=== PATIENT | female | born 1940 | race Caucasian/White ===

== ENCOUNTER 2016-10-25 15:35 | Inpatient (IN) ==
[2016-10-25] MEDS ORDERED: NS 1,000 ML ONE (16:27)
[2016-10-25] MEDS ORDERED: NS 1,000 ML IV ONE (16:30)
[2016-10-25] MEDS ORDERED: TYLENOL ONE (16:49)
[2016-10-25 16:50] LABS: ALLEN TEST YES; BE -9.6 mmoll (-3.0-3.0); BLOOD TYPE ARTERIAL; DRAW SITE R RADIAL; METHB 1.2 % (0.0-1.5); PCO2(98.6) 26 mmHg (35-45); PO2(98.6) 92 mmHg (60-100); SAMPLE BLOOD; THB 8.8 g/dL (11.5-17.4); pH(98.6) 7.36 (7.35-7.45)
[2016-10-25 16:51] LABS: MODALITY CANNULA
[2016-10-25 16:59] LABS: BASO% 3.4 % (0.0-0.8); EOS# 0.01 X1000 (0.0-0.7); EOS% 0.5 % (0.0-10.0); HEMATOCRIT 29.8 % (37.0-47.0); HEMOGLOBIN 9.6 g/dL (12.0-16.0); LYMPH# 0.64 X1000 (1.2-3.4); LYMPH% 31.2 % (20.5-51.1); MANUAL DIFF NEEDED? YES; MCHC 32.2 g/dL (33-37); MCV 93.1 FL (81-99); MONO# 0.59 X1000 (0.11-0.59); MONO% 28.8 % (1.7-9.3); MPV 10.8 FL (7.4-10.4); NEUT% 36.1 % (42.2-75.2); PLT 87 X1000 (130-400)
[2016-10-25 17:04] LABS: INR 1.13; PTT 37.8 Seconds (22.0-36.0)
[2016-10-25 17:11] LABS: ALBUMIN 3.8 g/dL (3.5-5.0); MAGNESIUM 1.5 mg/dL (1.5-2.7); POTASSIUM 4.5 mmol/L (3.5-5.1); TOTAL BILIRUBIN 0.62 mg/dL (0.20-1.00)
[2016-10-25] MEDS ORDERED: LACTULOSE PO ONE (17:23)
[2016-10-25 17:26] LABS: BANDS 17 % (0-1); LYMPHS 32 % (21-51); MONO 30 % (1-9); NRBC 1 % (0-0)
--- NOTE | 2016-10-25 17:28 | Diag Imaging Result Doc PS360 ---
EXAM: HEAD W/O CONTRAST TECHNIQUE: INDICATION: ams COMPARISON: MRI dated 09/12/2016. No prior CT brain is available for comparison. FINDINGS: There is no definite acute infarct given the limited sensitivity of CT versus MRI. There is no discrete intracranial mass, mass effect, or intracranial hemorrhage. There is a right frontal craniotomy defect. Surrounding soft tissues and bony structures are grossly unremarkable, otherwise. IMPRESSION: No evidence of acute intracranial pathology. Electronically signed by Gilson Torres 10/25/2016 5:26 PM
--- NOTE | 2016-10-25 17:32 | Diag Imaging Result Doc PS360 ---
EXAM: CHEST-PORTABLE INDICATION: sepsis eval lung ca recent port placed TECHNIQUE: One view COMPARISON: 10/09/2016 FINDINGS: There has been interval placement of right chest port. The tip projects over the region of the lower SVC just superior to the atriocaval junction in the expected position. There is vague nodularity seen throughout both lungs consistent with known metastatic disease. There is increased opacity at the right lung base suggesting a possible developing infiltrate. There is no evidence of pneumothorax. Cardiac silhouette is stable. IMPRESSION: 1.Interval placement of right chest port as described. No evidence of pneumothorax. 2.Fine nodularity throughout both lungs similar to previous studies consistent with known metastatic disease. 3.Increased opacity at the right lung base suggesting potential developing infiltrate. Follow-up chest radiograph is recommended. Electronically signed by Gilson Torres 10/25/2016 5:30 PM
[2016-10-25 17:43] LABS: URINE CULTURE NEEDED? NO; URINE SOURCE CATH
[2016-10-25] MEDS ORDERED: ZOSYN 3.375 GM/NS 3.375 GM/50 ML IVPB IV ONE (17:47)
[2016-10-25 17:54] LABS: BILIRUBIN URINE NEGATIVE (NEGATIVE); BLOOD URINE NEGATIVE (NEGATIVE); COLOR YELLOW; GLUCOSE URINE NEGATIVE (NEGATIVE); LEUKOCYTES URINE NEGATIVE (NEGATIVE); NITRITE URINE NEGATIVE (NEGATIVE); PH URINE 5.5; PROTEIN URINE 50 mg/dL (NEGATIVE); SP GRAVITY URINE 1.014; TURBIDITY URINE HAZY (CLEAR); URINE MICRO REVIEW NEEDED? YES; UROBILINOGEN URINE NORMAL (NORMAL)
[2016-10-25 17:58] LABS: UR EPITHELIAL CELLS <10 /HPF (<10); URINE BACTERIA NEGATIVE /HPF; URINE WBC <10 /HPF (<10)
[2016-10-25 18:00] LABS: URINE CASTS GRANULAR PRESENT
[2016-10-25] MEDS ORDERED: CLINDAMYCIN 600 MG/NS 600 MG/50 ML IVPB IV ONE (18:01)
--- NOTE | 2016-10-25 18:03 | PROVIDER DOCUMENTATION ---
This chart was entered by Gabi Rosas Scribe, acting as scribe for Rohit Mcdowell MD. HPI-Fever - General Chief Complaint: Possible Sepsis-D Stated Complaint: SOB/NOT RESPONDING Time Seen by Provider: 10/25/16 16:03 Source: patient Home Medications: Home Medication List Medication Instructions Recorded Confirmed Last Taken Type Bisoprolol [Zebeta] 10 mg PO DAILY 09/29/16 09/29/16 09/29/16 05:30 History Cholecalciferol (Vit D3) [Vitamin 1,000 cap PO DAILY 09/29/16 09/29/16 09/28/16 10:00 History D] Furosemide 20 cap PO DAILY 09/29/16 09/29/16 09/28/16 10:00 History Gabapentin [Neurontin] 100 mg PO 4XDAY 09/29/16 09/29/16 09/28/16 21:00 History Gemfibrozil 600 mg PO BID 09/29/16 09/29/16 09/28/16 17:00 History Lamotrigine [Lamictal Xr] 200 mg PO DAILY 09/29/16 09/29/16 09/28/16 10:00 History Loperamide [Imodium] 2 mg PO BID 09/29/16 09/29/16 09/08/16 17:00 History Losartan [Cozaar] 50 mg PO DAILY 09/29/16 09/29/16 09/28/16 10:00 History Melatonin/Pyridoxine [Melatonin 3 3 mg PO HS 09/29/16 09/29/16 09/28/16 21:00 History mg Tablet] Omeprazole 40 mg PO DAILY 09/29/16 09/29/16 09/28/16 10:00 History PRAVAstatin [Pravachol] 40 mg PO DAILY 09/29/16 09/29/16 09/28/16 10:00 History Perphenazine 2 mg PO HS 09/29/16 09/29/16 09/28/16 21:00 History Trazodone [Desyrel] 50 mg PO HS 09/29/16 09/29/16 09/28/16 09:00 History - History of Present Illness-Fever Nature of Presenting Problem: Pt is a 75 year old female who was recently diagnosed with lung and spine cancer. Pt daughters report that she got a port put in yesterday and seemed fine. Pt later on in the night started running a 101.4 fever so the family called Dr. Shrestha. PT was told to take a percocet and it brought the fever down. Pt this morning was lethargic. Fever Severity/Quality: reports: greater than 100.5 F Onset/Duration: reports: 24 hours ago Timing: reports: still present Context: reports: decreased mental status, cancer-chemotherapy Fever Therapy TSA SCREENER: Initiated prescription medications Cognitive Baseline: alert but disoriented Associated Symptoms: reports: fever/chills, weakness Similar Symptoms Previously?: Yes Recently seen or treated by another doctor?: No - Glascow Coma Score Best Eye Response ([place]): (4) open spontaneously Best Verbal Response ([place]): (5) oriented Best Motor Response ([place]): (6) obeys commands [place] Total: 15 Review of Systems - Adult - REVIEW OF SYSTEMS - ADULT ROS:: unobtainable per condition Constitutional: reports: chills, fever Past History - Adult - PAST MEDICAL HISTORY-ADULT Review of Records: reports: Old Records Reviewed, Nursing Assessment Review Major Childhood Illnesses: reports: denies history Cardiovascular: reports: HTN Respiratory: reports: asthma, cancer (lung) Gastrointestinal: reports: denies history Obstetrical/Gynecological: reports: denies history Genitourinary: reports: denies history Musculoskeletal: reports: denies history Neurological: reports: denies history Endocrine/Immune: reports: denies history Other Conditions: reports: denies history - IMMUNIZATION STATUS Childhood Immunizations: See Nurse Assessment Flu Vaccine: See Nurse Assessment - FAMILY HISTORY Family History: reviewed, not pertinent Physical Exam-General - PHYSICAL EXAM-ADULT Initial Vital Signs Reviewed: Yes - CONSTITUTIONAL General Appearance: alert, mild distress, obese - EYES Eyes: PERRL/EOMI - HEAD, EARS, NOSE, MOUTH & THROAT HENMT: normocephalic/atraumatic, moist mucous membranes - NECK Neck: normal inspection - RESPIRATORY Respiratory: chest non-tender, lungs clear, normal breath sounds - CARDIOVASCULAR Cardiovascular: regular rate, rhythm - GASTROINTESTINAL (ABDOMEN) Abdominal Exam: soft, other (colonoscopy; feeding tube) - MUSCULOSKELETAL Back Exam: normal inspection, no vertebral tenderness Extremity: normal range of motion, non-tender, normal inspection - SKIN Integumentary: normal color, normal turgor, warm/dry - NEUROLOGIC Neurologic: grossly normal, no motor/sensory deficits - PSYCHIATRIC Psych/Mental Status: normal mood/affect, normal thought content, normal thought process, oriented x 3 Progress - PLAN OF CARE/RESULTS Progress/Plan/Lab Results: Vital Signs - 8 hr 10/25/16 16:09 10/25/16 17:42 Temperature 103.0 F H Pulse Rate 87 78 Respiratory Rate 27 H 23 Blood Pressure 161/57 161/57 O2 Sat by Pulse Oximetry 93 L 97 Laboratory Results - last 24 hr 10/25/16 10/25/16 10/25/16 16:05 16:05 16:05 WBC 2.05 L RBC 3.20 L Hgb 9.6 L Hct 29.8 L MCV 93.1 MCH 30.0 MCHC 32.2 L RDW Std Deviation 12.7 Plt Count 87 L MPV 10.8 H Immature Gran % (Auto) 0.0 Neut % (Auto) 36.1 L Lymph % (Auto) 31.2 [place] % (Auto) 28.8 H Eos % (Auto) 0.5 Baso % (Auto) 3.4 H Immature Gran # (Auto) 0.00 Neut # (Auto) 0.74 L Lymph # (Auto) 0.64 L [place] # (Auto) 0.59 Eos # (Auto) 0.01 Baso # (Auto) 0.07 Segmented Neutrophils 16 L Band Neutrophils 17 H Lymphocytes 32 Monocytes 30 H Nucleated RBCs 1 H Atypical Lymphocytes 5.0 PT INR PTT (Actin FS) Specimen Type Sample Site pH pCO2 pO2 HCO3 Base Excess Oxyhemoglobin ABG O2 Sat (Calculated) ABG O2 Saturation ABG Carboxyhemoglobin ABG Methemoglobin Joseluis Test Total Hemoglobin Lactate Liter Flow Blood Gas Modality Sodium 132 L Potassium 4.5 Chloride 103 Carbon Dioxide 16 L Anion Gap 13 BUN 25 H Creatinine 1.2 H Estimated GFR/1.73 m2 44 BUN/Creatinine Ratio 21 Glucose 172 H Calculated Osmolality 273 Calcium 9.0 Magnesium 1.5 Total Bilirubin 0.62 AST 13 ALT 11 Alkaline Phosphatase 117 H Ammonia Creatine Kinase 19 L Troponin T Total Protein 7.0 Albumin 3.8 Globulin 3.2 Albumin/Globulin Ratio 1.2 Plasma Lactate 1.5 Urine Source Urine Color Urine Turbidity Urine pH Ur Specific Branch Urine Protein Ur Glucose (Stick) Ur Ketones (Stick) Urine Blood Urine Nitrite Urine Bilirubin Urobilinogen Dipstick Urine Leukocytes Urine WBC (Auto) Urine RBC (Auto) U Epithel Cells (Auto) Urine Bacteria (Auto) 10/25/16 10/25/16 10/25/16 16:05 16:05 16:05 WBC RBC Hgb Hct MCV MCH MCHC RDW Std Deviation Plt Count MPV Immature Gran % (Auto) Neut % (Auto) Lymph % (Auto) [place] % (Auto) Eos % (Auto) Baso % (Auto) Immature Gran # (Auto) Neut # (Auto) Lymph # (Auto) [place] # (Auto) Eos # (Auto) Baso # (Auto) Segmented Neutrophils Band Neutrophils Lymphocytes Monocytes Nucleated RBCs Atypical Lymphocytes PT 12.0 H INR 1.13 PTT (Actin FS) 37.8 H Specimen Type Sample Site pH pCO2 pO2 HCO3 Base Excess Oxyhemoglobin ABG O2 Sat (Calculated) ABG O2 Saturation ABG Carboxyhemoglobin ABG Methemoglobin Joseluis Test Total Hemoglobin Lactate Liter Flow Blood Gas Modality Sodium Potassium Chloride Carbon Dioxide Anion Gap BUN Creatinine Estimated GFR/1.73 m2 BUN/Creatinine Ratio Glucose Calculated Osmolality Calcium Magnesium Total Bilirubin AST ALT Alkaline Phosphatase Ammonia 62 H Creatine Kinase Troponin T < 0.010 Total Protein Albumin Globulin Albumin/Globulin Ratio Plasma Lactate Urine Source Urine Color Urine Turbidity Urine pH Ur Specific Branch Urine Protein Ur Glucose (Stick) Ur Ketones (Stick) Urine Blood Urine Nitrite Urine Bilirubin Urobilinogen Dipstick Urine Leukocytes Urine WBC (Auto) Urine RBC (Auto) U Epithel Cells (Auto) Urine Bacteria (Auto) 10/25/16 10/25/16 16:50 17:32 WBC RBC Hgb Hct MCV MCH MCHC RDW Std Deviation Plt Count MPV Immature Gran % (Auto) Neut % (Auto) Lymph % (Auto) [place] % (Auto) Eos % (Auto) Baso % (Auto) Immature Gran # (Auto) Neut # (Auto) Lymph # (Auto) [place] # (Auto) Eos # (Auto) Baso # (Auto) Segmented Neutrophils Band Neutrophils Lymphocytes Monocytes Nucleated RBCs Atypical Lymphocytes PT INR PTT (Actin FS) Specimen Type ARTERIAL Sample Site R RADIAL pH 7.36 pCO2 26 L pO2 92 HCO3 17.4 L Base Excess -9.6 L Oxyhemoglobin 96.1 ABG O2 Sat (Calculated) 12.0 L ABG O2 Saturation 99.0 ABG Carboxyhemoglobin 1.60 ABG Methemoglobin 1.2 Joseluis Test YES Total Hemoglobin 8.8 L Lactate 1.10 Liter Flow 3.0 Blood Gas Modality CANNULA Sodium Potassium Chloride Carbon Dioxide Anion Gap BUN Creatinine Estimated GFR/1.73 m2 BUN/Creatinine Ratio Glucose Calculated Osmolality Calcium Magnesium Total Bilirubin AST ALT Alkaline Phosphatase Ammonia Creatine Kinase Troponin T Total Protein Albumin Globulin Albumin/Globulin Ratio Plasma Lactate Urine Source CATH Urine Color YELLOW Urine Turbidity HAZY Urine pH 5.5 Ur Specific Branch 1.014 Urine Protein 50 A Ur Glucose (Stick) NEGATIVE Ur Ketones (Stick) NEGATIVE Urine Blood NEGATIVE Urine Nitrite NEGATIVE Urine Bilirubin NEGATIVE Urobilinogen Dipstick NORMAL Urine Leukocytes NEGATIVE Urine WBC (Auto) <10 Urine RBC (Auto) 10-20 A U Epithel Cells (Auto) <10 Urine Bacteria (Auto) NEGATIVE Orders Category Date Time Status Cardiac Monitoring DIRECTED Care 10/25/16 16:28 Active Harris Cath Insertion ORDERED Care 10/25/16 16:30 Active IV Insertion ORDERED Care 10/25/16 16:28 Completed CHEST-PORTABLE [RAD] Stat Exams 10/25/16 16:30 Completed HEAD W/O CONTRAST [CT] Stat Exams 10/25/16 16:30 Completed ABG [RESP] Routine Lab 10/25/16 16:50 Completed AMMONIA [CHEM] Stat Lab 10/25/16 16:05 Completed BLOOD CULTURE [BLDCUL] Stat Lab 10/25/16 16:05 Results CBC WITH DIFF [HEME] Stat Lab 10/25/16 16:05 Completed CK PROFILE [SP CHEM] Stat Lab 10/25/16 16:05 Completed COMPREHENSIVE METABOLIC PANEL [CHEM] Stat Lab 10/25/16 16:05 Completed LACTATE, PLASMA [CHEM] Stat Lab 10/25/16 16:05 Completed MAGNESIUM [CHEM] Stat Lab 10/25/16 16:05 Completed PROTIME WITH INR [COAG] Stat Lab 10/25/16 16:05 Completed PTT [COAG] Stat Lab 10/25/16 16:05 Completed TROPONIN T Stat Lab 10/25/16 16:05 Completed URINALYSIS W/POSS RFLX CULT-1 [URINALYSIS] Stat Lab 10/25/16 17:32 Results URINE MANUAL MICROSCOPIC [URINALYSIS] Stat Lab 10/25/16 17:32 Results 0.9% Sodium Chloride Inj [Ns] 1,000 ml Med 10/25/16 16:27 Discontinued .ROUTE As Directed 0.9% Sodium Chloride Inj [Ns] 1,000 ml Med 10/25/16 16:30 Discontinued IV 999 mls/hr Acetaminophen [Tylenol] Med 10/25/16 16:49 Discontinued 650 mg .ROUTE .STK-MED ONE Lactulose Med 10/25/16 17:23 Once 30 ml PO NOW ONE Piperacil/Tazobact 3.375 gm/Ns [Zosyn 3.375 gm/Ns] Med 10/25/16 17:47 Active 3.375 gm in 50 ml IV NOW Result Diagrams: 10/25/16 16:05 10/25/16 16:05 - REASSESSMENT Reassessment #1 Time Reassessed: 17:37 (pt will be admitted ) Status: unchanged - EKG 1 Time of EKG reading by physician:: 16:19 EKG Read and Signed by:: Rohit Mcdowell EKG Interpretation (*Must complete 3 of following elements*): Normal Rate: 84 Rhythm: NSR - XRAY 1 XRAY Study: Chest (1. interval placement of right chest port as described. no evidence of pneumothorax. 2. fine nodularity throuhgout both lungs similar to previous studies consistent with known metastatic disease 3. increased opacity at the right lung base suggesting potential developing infiltrate.) - CT/MRI 1 CT Study: Head (no evidence of acute intracranial pathology) Departure - Departure Date of Disposition Decision: 10/25/16 Time of Disposition Decision: 17:58 DIAGNOSIS: Sepsis Qualifiers: Sepsis type: sepsis due to unspecified organism Qualified Code(s): A41.9 - Sepsis, unspecified organism Altered mental status Qualifiers: Altered mental status type: unspecified Qualified Code(s): R41.82 - Altered mental status, unspecified Disposition: ADMITTED INPATIENT 09 Certified Medical Emergency: Emergent Condition: Serious Additional Freetext Instructions: ED Follow Up Instructions: You have been treated by a care provider in the Emergency Department. These instructions are being provided to you so you can have an understanding of how to care for yourself upon discharge. Upon discharge from the Emergency Department, you are responsible for making arrangements for follow-up care by a physician of your choice. Take all prescribed medications as directed. Return to the Emergency Department immediately for any new or worsening symptoms. You may call the Physician Referral phone number at [phone] to obtain a list of Physicians who are taking new patients. Referrals and Follow-Ups: Alex Martienz [Primary Care Provider] - - Critical Care Note This patient required my direct & personal management of CC.: Yes Total Time (mins): 45 Critical Care Statement: This patient required my direct personal management to treat or rule out processes, the absence of which, could potentiallly result in sudden, clinically significant life or limb threatening deterioration. This chart was documented by the indicated scribe, (Gabi Rosas Scribe) and accurately reflects the services I performed and decisions made by me, Rohit Mcdowell MD, as attested by the provider's signature.
[2016-10-25] MEDS ORDERED: ZOFRAN IV PRN (18:09)
[2016-10-25] MEDS ORDERED: TYLENOL PO PRN (18:09)
[2016-10-25] MEDS ORDERED: VANCOMYCIN IV PER PHARMACY MISC SCH (18:15)
[2016-10-25] MEDS ORDERED: LACTULOSE ONE (18:41)
[2016-10-25] MEDS: MAXIPIME 1 GM/NS 1 GM/50 ML IVPB IV SCH (20:04)
--- NOTE | 2016-10-25 20:25 | Diag Imaging Result Doc PS360 ---
EXAM: THORAX/ABDOMEN/PELVIS W/O CONT INDICATION: fever/chemotherapy/recent port placement TECHNIQUE: Dose reduction protocol was used. COMPARISON: CT PET scan dated 09/16/2016 FINDINGS: CHEST: Numerous small nodules throughout both lungs are essentially stable consistent with known metastatic disease. There is trace pleural fluid on the right. There is subsegmental atelectasis at the lung bases, more prominent on the right. There is mild focal infiltrate versus atelectasis involving the posterior inferior aspect of the right upper lobe. There is no pneumothorax. There has been interval placement of a right chest port. The tip is at the atriocaval junction in the expected position. There are calcified mediastinal and hilar lymph nodes indicating prior granulomatous disease. There is no evidence of significant mediastinal or hilar lymphadenopathy, otherwise. ABDOMEN/PELVIS: A gastrostomy tube is in place. There is a stable ostomy on the right. It appears to be patent. There are calcified stones in the gallbladder lumen. There is no pericholecystic inflammatory change. There are calcified granulomata in the liver and the spleen. They are grossly unremarkable, otherwise. There is a stable right adrenal adenoma. The pancreas is unremarkable. There is a stable small cystic appearing focus involving the right kidney. The kidneys are essentially unremarkable, otherwise. There has been a previous hysterectomy. There is a Harris catheter in the urinary bladder. The bladder is nondistended. There is a stable expansile lytic lesion involving the sacrum on the right. 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 There is a stable L4 sclerotic focus that has a stippled internal appearance and may actually represent a hemangioma. IMPRESSION: 1.Multiple metastatic lesions throughout the lungs that are essentially stable. 2.Bibasilar subsegmental atelectasis and trace effusion on the right. 3.Mild focal infiltrate versus mild atelectasis at the posteroinferior aspect of the right upper lobe. 4.The abdomen and pelvis are grossly stable. Electronically signed by Gilson Torres 10/25/2016 8:22 PM
[2016-10-25] MEDS ORDERED: MAGNESIUM SULFATE 2 GM/S.W.I. 2 GM/50 ML IVPB IV ONE (20:44)
[2016-10-25] MEDS: NS 1,000 ML IV SCH (22:07)
[2016-10-25] MEDS: SODIUM CHLORIDE 0.9% INJ SCH (22:09)
[2016-10-25] MEDS: VANCOMYCIN 1.6 GM in NS 250 ML IV SCH (22:09)
[2016-10-25] MEDS: PEPCID IV SCH (22:09)
--- NOTE | 2016-10-25 22:21 | HISTORY AND PHYSICAL ---
ONCOLOGIST: Dr. Shrestha. CHIEF COMPLAINT: Confusion and high fever at home. 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 The patient just had a Port-A-Cath placed yesterday for chemotherapy. Last night the patient was noted to have a low-grade temperature. Later on in the evening the patient had a fever of 101.4. The patient's family then called Dr. Shrestha's office and they were told to give the patient a dose of Percocet and monitor for recurrent fever. However this morning when the patient woke up she was noted to be lethargic and barely able to talk and form sentences so the patient's family brought her to the ER. The patient is under the care of Dr. Shrestha for her cancer treatment. The patient gets her feeding through a PEG tube. The patient has completed 1 cycle of chemotherapy. She also received a Neulasta shot following the 1st cycle of therapy. In the ER the patient was noted to have a temperature of 103 and the patient was noted to be very lethargic. A CT of the chest, abdomen and pelvis was done that revealed a focal infiltrate in the right upper lobe. As a result the patient was started on IV fluids and dumas cultured and started on broad-spectrum antibiotics and admission was recommended. PAST MEDICAL HISTORY: 1. Hypertension. 2. Morbid obesity. 3. Stage IV small-cell lung carcinoma. 4. Neuropathy. GERD. 5. Vitamin D deficiency. 6. Dyslipidemia. PAST SURGICAL HISTORY: 1. PEG tube placement. 2. Colon resection with colostomy. 3. Right craniotomy. 4. Fine needle aspiration of the lung. FAMILY HISTORY: Noncontributory due to age. SOCIAL HISTORY: The patient lives at home with family. The patient is a nonsmoker and does not consume alcoholic beverages or use illicit drugs. ALLERGIES: 1. ALYCE inhibitors. 2. Ciprofloxacin. 3. Hydrocodone. 4. Lidocaine. 5. Sulfa drugs. HOME MEDICATIONS: The patient's medication list has not been confirmed yet. REVIEW OF SYSTEMS: A 12 point review of systems has been performed. Please refer to the history of present illness for pertinent positives and negatives. PHYSICAL EXAM: VITAL SIGNS: Temperature 103 degrees, blood pressure 161/57, heart rate 87, respirations 27, O2 saturations 93% on room air. GENERAL: This is a morbidly obese female lying on the stretcher in no acute distress. SKIN: No rashes. No lesions. Normal capillary refill. HEAD: Normocephalic, atraumatic. EYES: Conjunctiva clear, EOMI, ELYSSA. NECK: Supple, no JVD. No lymphadenopathy. No carotid bruits. LUNGS: Equal air entry bilaterally, no crackles, no rales. ABDOMEN: Positive bowel sounds, soft, obese, nontender, nondistended. EXTREMITIES: No edema, no cyanosis. No calf tenderness. NEURO: The patient is awake and able to move all 4 extremities. She is lethargic, she is oriented to person, place and time. LABS: White blood cell count 2, hemoglobin 9.6, hematocrit 29.8, platelets 87, 000, INR 1.1. Sodium 132, potassium 4.5, chloride 103, CO2 16, BUN 25, creatinine 1.2, glucose 172, calcium 9, magnesium 1.5, lactate 1.5, C-reactive protein 138.9, ammonia 62. UA 10-[address] of the chest, abdomen, and pelvis reveals mild focal infiltrate in the right upper lobe. Multiple metastatic lesions throughout the lungs that are stable. ASSESSMENT AND PLAN: 1. Fever. The patient will have blood, sputum and urine cultures obtained and will be started on broad-spectrum antibiotic. 2. Possible pneumonia. The patient will be started on IV antibiotics plus bronchodilator therapy. Will follow up the results of the sputum Gram stain and culture. 3. Stage IV small-cell lung cancer. Will consult Dr. Shrestha for further recommendations. 4. Acute kidney injury. This may be secondary to dehydration. The patient has been started on IV fluid hydration. Will monitor the urine output and avoid nephrotoxic agents. 5. Thrombocytopenia. Will monitor the patient's platelet count closely. Will avoid heparin products. 6. Hypomagnesemia. Will replace the magnesium. 7. Hyperammonemia. The patient received a dose of lactulose while in the emergency room. We will follow the ammonia level. 8. Gastroesophageal reflux disease. Will start the patient on IV Pepcid. 9. Nutrition. Will consult the dietitian and resume the patient's PEG tube feeds. 10. Status post recent Port-A-Cath placement. Aware. 11. The plan of care was discussed with the patient's family at the bedside. cc: Summer Douglas MD MTDD
[2016-10-26] MEDS: NS 1,000 ML IV SCH (04:59)
[2016-10-26] MEDS: MAXIPIME 1 GM/NS 1 GM/50 ML IVPB IV SCH ×2 (05:34→18:44)
[2016-10-26 07:07] LABS: BASO% 2.4 % (0.0-0.8); EOS# 0.04 X1000 (0.0-0.7); EOS% 0.5 % (0.0-10.0); HEMATOCRIT 26.3 % (37.0-47.0); HEMOGLOBIN 8.5 g/dL (12.0-16.0); IMM GRAN# 0.75 X1000 (0.0-0.04); IMM GRAN% 8.5 % (0.0-0.5); LYMPH# 1.69 X1000 (1.2-3.4); LYMPH% 19.1 % (20.5-51.1); MANUAL DIFF NEEDED? YES; MCH 30.4 PG (27-31); MCHC 32.3 g/dL (33-37); MCV 93.9 FL (81-99); MONO# 1.04 X1000 (0.11-0.59); MONO% 11.7 % (1.7-9.3); MPV 10.9 FL (7.4-10.4); NEUT% 57.8 % (42.2-75.2); PLT 82 X1000 (130-400)
[2016-10-26 07:14] LABS: HEMOGLOBIN A1C 5.9 % (4.8-6.0)
[2016-10-26 07:28] LABS: BANDS 2 % (0-1); LYMPHS 26 % (21-51); MONO 12 % (1-9)
[2016-10-26 07:30] LABS: CALCIUM 8.5 mg/dL (8.8-10.2); MAGNESIUM 2.3 mg/dL (1.5-2.7); POTASSIUM 4.7 mmol/L (3.5-5.1)
[2016-10-26] MEDS ORDERED: VITAMIN D PEG SCH (08:00)
[2016-10-26] MEDS ORDERED: LAMICTAL XR PO SCH (09:00)
[2016-10-26] MEDS: SODIUM BICARBONATE 8.4% 100 MEQ in 1/2 NS 1,000 ML IV SCH (10:13)
[2016-10-26] MEDS: LEXAPRO PO SCH (10:14)
[2016-10-26] MEDS: PEPCID IV SCH ×2 (10:14→21:26)
[2016-10-26] MEDS: PATIENT'S OWN MED PO SCH (14:28)
--- NOTE | 2016-10-26 14:31 | PROGRESS NOTE ---
DATE: 10/26/2016 SUBJECTIVE: The patient is more awake and alert today. She states that she feels a lot better. The patient was noted to be afebrile overnight. OBJECTIVE: Vital Signs: Temperature 97.8 degrees, blood pressure 120/37, heart rate 61, respirations 19, O2 saturations 99% on 2 L nasal cannula. General: This is a morbidly obese female, lying in bed, in no acute distress. HEENT: Head normocephalic, atraumatic. Heart: S1, S2. Normal. Regular rate and rhythm. Lungs: Equal air entry bilaterally. No crackles. No rales. Abdomen: Positive bowel sounds. Soft, obese, nontender, nondistended. Extremities: No edema. No cyanosis. Neurologic: The patient is alert and oriented x3. LABORATORY: White blood cell count 8.8, hemoglobin 8.5, hematocrit 26, platelets 82,000. Sodium 139, potassium 4.7, chloride 110, CO2 15, BUN 33, creatinine 1.5, glucose 110. Hemoglobin A1c 5.9. Vitamin D level 10.4. ASSESSMENT AND PLAN: 1. Fever. We will follow up on the blood and urine cultures. We will continue with broad- spectrum antibiotic coverage at this time. 2. Pneumonia. Continue on IV antibiotic plus bronchodilator therapy. We will also add incentive spirometry. 3. Metastatic small cell lung cancer. Management as per the oncologist. 4. Acute kidney injury. We will check urine studies and continue with IV fluid hydration. 5. Vitamin D deficiency. We will start the patient on vitamin D replacement. 6. Metabolic acidosis. The patient has been started on a bicarbonate drip. 7. Morbid obesity. Aware. 8. Anemia of chronic disease. The patient's hemoglobin and hematocrit are a little bit lower today. We will continue to monitor this and transfuse as needed. 9. Thrombocytopenia. We will continue to monitor this closely and avoid heparin products. cc: Summer Douglas MD [facility]
[2016-10-26] MEDS: DUONEB (A & A) INH SCH ×2 (15:53→22:00)
[2016-10-26 17:46] LABS: UR CREAT RANDOM 142.6 mg/dL (11-20); UR PROT RANDOM 51.1 mg/dL; UR SODIUM < 10 mmoll
[2016-10-26] MEDS: SODIUM CHLORIDE 0.9% INJ SCH (21:26)
[2016-10-27] MEDS: SODIUM BICARBONATE 8.4% 100 MEQ in 1/2 NS 1,000 ML IV SCH (00:16)
[2016-10-27] MEDS: DUONEB (A & A) INH SCH ×4 (03:32→21:15)
[2016-10-27] MEDS: MAXIPIME 1 GM/NS 1 GM/50 ML IVPB IV SCH (05:49)
--- NOTE | 2016-10-27 08:09 | EKG Report ---
Test Performed on : 10/25/2016 4:19:14 PM Test Reason : No Order in [employer] Blood Pressure : / mmHG Vent. Rate : 084 BPM Atrial Rate : 084 BPM P-R Int : 146 ms QRS Dur : 084 ms QT Int : 318 ms P-R-T Axes : 047 024 025 degrees QTc Int : 375 ms Normal sinus rhythm. Normal ECG No previous ECGs available Unconfirmed Result
[2016-10-27 08:11] LABS: CALCIUM 8.8 mg/dL (8.8-10.2); POTASSIUM 3.8 mmol/L (3.5-5.1)
[2016-10-27 08:35] LABS: HEMATOCRIT 26.9 % (37.0-47.0); HEMOGLOBIN 8.6 g/dL (12.0-16.0); MANUAL DIFF NEEDED? YES; MCH 30.5 PG (27-31); MCV 95.4 FL (81-99); MPV 10.9 FL (7.4-10.4); PLT 110 X1000 (130-400); RBC 2.82 XMIL (4.2-5.4)
[2016-10-27] MEDS: SODIUM CHLORIDE 0.9% INJ SCH (08:52)
[2016-10-27] MEDS: LEXAPRO PO SCH (08:53)
[2016-10-27] MEDS: VANCOMYCIN 1.6 GM in NS 250 ML IV SCH (08:53)
[2016-10-27] MEDS: PEPCID IV SCH (08:53)
[2016-10-27] MEDS: PATIENT'S OWN MED PO SCH (08:56)
[2016-10-27 09:27] LABS: LYMPHS 15 % (21-51); MONO 11 % (1-9)
[2016-10-27] MEDS ORDERED: NS 1,000 ML IV SCH (17:02)
--- NOTE | 2016-10-27 17:36 | PROGRESS NOTE ---
DATE: 10/27/2016 SUBJECTIVE: Patient has no focal complaints. OBJECTIVE: Vital Signs: Blood pressure 127/74, heart rate 74, respiratory 21, temperature 99.1 degrees, 98% on 2 L. Cardiovascular: Regular rate and rhythm. Pulmonary: Bilateral breath sounds, clear to auscultation. Gastrointestinal: Soft, nontender, nondistended. Bowel sounds are positive. LABORATORY: White count 32, hemoglobin and hematocrit 8 and 27, platelets 110,000. BUN creatinine down to 25 and 1.0. PROBLEM LIST: 1. Pneumonia. We will continue treatment. I believe is the left lower lobe. She is on cefepime and vancomycin. We will continue pulmonary toilet. Repeat chest x-ray tomorrow. 2. Metastatic colon cancer. Management per Oncology. 3. Acute kidney injury. Continue IV fluids and follow closely. 4. Anemia appears to be stable. 5. Disposition. and follow closely. Possible discharge in 1-2 days. cc: MD Summer Schmitt MD
[2016-10-27] MEDS: MAXIPIME 2 GM/NS 2 GM/100 ML IVPB IV SCH (20:20)
--- NOTE | 2016-10-27 20:36 | CONSULTATION ---
DATE OF CONSULTATION: 10/27/2016 CONCLUSION: Patient is admitted to the hospital with fever and altered mental status. On her CT scan of the chest, there are some infiltrate areas that could be pneumonia. The patient recently had a Port-A-Cath put in. In fact, it was done 3 days ago, and the site does not show any evidence of infection. The patient has 1 of 2 blood cultures positive for gram-positive cocci. This could be a contaminant such as that due to coag-negative staphylococcus or could represent a pathogen such as Staphylococcus aureus or pneumococcus. It should be noted that the patient's white count has gone from 2000 to 32,400. Family told me that approximately a week ago she got a shot of Neulasta, and possibly this is the reason why the white count has increased so much. The amount of pneumonia that I see in the x-ray to me would not really be enough to suspect that is causing the leukocytosis. Likewise, the Port-A-Cath which has just been put in would be an unlikely source of the leukocytosis, because I doubt there is an infection coming from it. RECOMMENDATIONS: I have increased cefepime to 2 g IV every 12 hours. I agree with using it and also using vancomycin pending culture results. DISCUSSION: The patient is very hard of hearing. The history was taken from the family. Approximately 4 days ago, she started developing fever, and then she had an altered mental status. She came to the emergency room where she was admitted to the hospital. Her initial white count as mentioned above was 2000. Today, it was 32,400, hemoglobin 8.6, and platelet count 110,000. Patient's 1 of 2 blood cultures is growing gram positive coccus. The other one is negative. The urine culture is negative. CT scan of the chest shows multiple nodules compatible with metastatic cancer most likely from the patient's known lung cancer. She has had in the past colon cancer but it was treated with colectomy and not likely the cause of the pulmonary nodules. PAST MEDICAL HISTORY: Positive for hypertension, morbid obesity, stage IV small cell lung cancer, neuropathy, gastroesophageal reflux disease, vitamin D deficiency, hyperlipidemia, diabetes mellitus, sleep apnea, meningioma of the brain, colon cancer. PAST SURGICAL HISTORY: Positive for placement of a PEG tube. Colectomy with resulting colostomy. A right craniotomy to remove the patient's meningioma, and a fine needle aspiration of the lung. SOCIAL HISTORY: The patient lives at home with her . The patient does not smoke, consume alcoholic beverages, or use illicit drugs. ALLERGIES: ALYCE inhibitors, Ciprofloxacin, hydrocodone, lidocaine, and sulfa drugs. HOME MEDICATIONS: Include the followin. Desyrel. 2. Perphenazine. 3. Pravachol. 4. Omeprazole. 5. Melatonin. 6. Losartan. 7. Imodium. 8. Lamictal. 9. Gemfibrozil. 10. Neurontin. 11. Furosemide. 12. Zebeta. 13. Requip. 14. Lexapro. 15. Zofran. 16. Oxycodone. PHYSICAL EXAMINATION: Vital Signs: Temperature is 98.2 degrees, pulse 76, respirations 20, blood pressure 132/29. General: This is an obese, elderly female. She is in no acute distress. Head, eyes, ears, nose, and throat: She is very hard of hearing. She can see near objects. There were no intraoral white patches on her tongue. Neck: No meningismus. Thorax: Patient has a Port-A- Cath on the right side. The site is not swollen or erythematous. Lungs: Clear to auscultation. Cardiovascular: Regular heart rate. Abdomen: Soft, nontender. Patient has a colostomy present, and a PEG tube present. Neurologic: Patient is awake. She can move her extremities. There is no tremor. She did answer questions. Integument: No rash noted. Thank you for the consultation. cc: MD Summer Stafford MD
[2016-10-28] MEDS: DUONEB (A & A) INH SCH ×4 (03:47→23:09)
[2016-10-28] MEDS: PRILOSEC PO SCH (06:15)
[2016-10-28] MEDS: MAXIPIME 2 GM/NS 2 GM/100 ML IVPB IV SCH ×2 (06:16→22:27)
[2016-10-28] MEDS ORDERED: BLISTEX MEDICATED BERRY LIP BALM TOP ONE (07:00)
[2016-10-28 07:02] LABS: AGAP 13; BUN 15 mg/dL (8-22); CALCIUM 8.8 mg/dL (8.8-10.2); CHLORIDE 109 mmol/L (98-107); COSMO 294; POTASSIUM 3.6 mmol/L (3.5-5.1); SODIUM 146 mmol/L (136-145); TCO2 24 mmol/L (25-35)
[2016-10-28 07:21] LABS: HEMATOCRIT 26.2 % (37.0-47.0); HEMOGLOBIN 8.3 g/dL (12.0-16.0); MCH 30.6 PG (27-31); MCHC 31.7 g/dL (33-37); MCV 96.7 FL (81-99); MPV 10.3 FL (7.4-10.4); RBC 2.71 XMIL (4.2-5.4)
--- NOTE | 2016-10-28 08:05 | Diag Imaging Result Doc PS360 ---
CHEST-2 VIEWS - 10/28/2016 INDICATION: hypoxia TECHNIQUE: COMPARISON: 10/25/2016 FINDINGS: Stable right chest port in good position. Stable cardiomegaly and pulmonary vascular congestion. There is decrease in the right basilar infiltrate. There is probably some trace interstitial pulmonary edema. There are trace pleural effusions. No compression fractures visible in the spine. IMPRESSION: Mild improvement, with improved aeration of the right lung base. Otherwise stable cardiomegaly, pulmonary vascular congestion, pulmonary edema and trace effusions. Electronically signed by Vishnu Gordon 10/28/2016 8:03 AM
--- NOTE | 2016-10-28 08:58 | CONSULTATION ---
DATE OF CONSULTATION: 10/27/2016 ADMITTING PHYSICIAN: Dr. Summer Douglas. REQUESTING PHYSICIAN: Dr. Summer Douglas. We appreciate this consult. CHIEF COMPLAINT: Stage IV small cell lung cancer. HISTORY OF PRESENT ILLNESS: Ms. Long is a 75-year-old, female, well known to us with a history of small cell lung cancer being treated by Dr. Shrestha with a combination of carboplatin and etoposide. Her last treatment was on 10/17/2016. She has completed cycle 1. She did receive Neulasta on 10/20/2016 as well. The patient presented to [facility] secondary to lethargy and fever. The patient had just recently had a Port-A-Cath placed for chemotherapy. Upon presentation to [facility], the patient had a fever of 103.0. CT of the chest, abdomen, and pelvis was obtained which revealed a focal infiltrate in the right upper lobe. The patient was begun on IV fluids and cultured and is admitted for questionable sepsis. PAST MEDICAL HISTORY: 1. Small cell lung cancer, stage IV. 2. Hypertension. 3. Morbid obesity. 4. Gastroesophageal reflux disease. 5. Neuropathy. 6. Dyslipidemia. 7. Vitamin D deficiency. PAST SURGICAL HISTORY: 1. PEG tube placement. 2. Colon resection with colostomy. 3. Right craniotomy. 4. Port placement. FAMILY HISTORY: Negative for any hematologic or oncologic problems. SOCIAL HISTORY: The patient does not use tobacco, alcohol, or illicit drugs. MEDICATIONS ON ADMISSION: 1. B12. 2. Bisoprolol fumarate. 3. Diflucan. 4. Furosemide. 5. Gemfibrozil. 6. Lamotrigine. 7. Loperamide. 8. Losartan. 9. Magic mouthwash. 10. Melatonin. 11. Neurontin. 12. Omeprazole. 13. [place]. 14. 15. Perphenazine. 16. Pravastatin. 17. Trazodone. 18. Zofran. ALLERGIES: 1. ALYCE inhibitors. 2. Ciprofloxacin. 3. Hydrocodone. 4. Lidocaine. 5. Sulfa drugs. REVIEW OF SYSTEMS: A 14-point review of systems was obtained and is negative except as mentioned in HPI. PHYSICAL EXAMINATION: General: Ms. Long is a 75-year-old female lying supine in bed in no immediate distress. Vital Signs: Temperature is 98.1, blood pressure 127/25, heart rate 70, respirations 18, O2 saturation is 98% on nasal cannula. HEENT: Normocephalic, atraumatic. Mucous membranes are pink and somewhat dry. Sclerae is anicteric. Extraocular movements intact. Neck: Supple. Lungs: Clear to auscultation bilaterally with some coarse breath sounds in bilateral bases. Chest expansion is equal bilaterally. CV: S1, S2 is heard without murmur, rub, or gallop. Abdomen: Soft, nondistended, nontender. Bowel sounds positive in all quadrants. No rebound or guarding noted. Extremities: Without clubbing, cyanosis, or edema. Dermatologic: No rashes, bruises, or lesions. Neurologic: The patient is slightly somnolent but, otherwise, awake and oriented x3. The patient has no focal deficit at this time. LABORATORY DATA: Hemoglobin 8.6, hematocrit 26.9, white blood cell count 32.40, platelets 110,000. Sodium 144, potassium 3.8, chloride 110. CO2 is 21. BUN 25, creatinine 1.0, glucose 109, calcium is 8.8. IMAGING STUDIES: CT chest, abdomen, and pelvis reveal multiple metastatic lesions throughout lungs with bibasilar atelectasis and trace right effusion as well as right upper lobe atelectasis versus infiltrate and a G tube that is in intact. CT of the head is negative for any acute abnormality. ASSESSMENT AND PLAN: 1. Stage IV small cell lung cancer. Currently, status post cycle 1 of carboplatin and etoposide with Neulasta on October 18, 2016. We will hold further treatment until the patient's acute illness has passed. 2. Fever. Cultures are currently pending to include urine and blood. 3. Questionable pneumonia. The patient is currently on vancomycin per admitting physician. Dr. Galvez has been consulted. 4. Thrombocytopenia with a platelet count of 110,000. The patient denies any bleeding or easy bruising. 5. Hypomagnesemia. We will continue to monitor and replete as necessary. 6. Elevated ammonia. The patient is currently on lactulose. We will continue to monitor levels. 7. We will follow along with you and make further recommendations pending outcomes. The above reflects the history, exam, assessment and plan of Dr. Petey Shrestha. Dictated by TD Viera for Petey Shrestha MD cc: TD Viera MD
[2016-10-28] MEDS ORDERED: VANCOMYCIN 1.6 GM in NS 250 ML IV SCH (09:00)
[2016-10-28] MEDS: PATIENT'S OWN MED PO SCH (09:11)
[2016-10-28] MEDS: LEXAPRO PO SCH (09:11)
[2016-10-28] MEDS ORDERED: 1/2 NS 1,000 ML IV SCH (09:51)
--- NOTE | 2016-10-28 13:41 | PROGRESS NOTE ---
DATE: 10/28/2016 PRESENT ILLNESS: The patient has a pneumonia. She also has an increasing white count but this may be secondary to her Neulasta. She also had 1 of 2 blood cultures positive. It turns out that the positive blood culture was for a coagulase-negative staph which is a contaminant and does not merit treatment. MEDICATIONS: The patient currently is on vancomycin and cefepime. PHYSICAL EXAMINATION: Vital Signs: Temperature is 99.3 degrees, pulse 86, respirations 19, blood pressure 159/48. General: The patient is obese. She looks still to be very weak and is wearing oxygen. Lungs: Clear to auscultation. Chest: The Port-A-Cath site is not erythematous or swollen. Cardiovascular: Heart rate is regular. Abdomen: Soft, and nontender. There is a colostomy in place as well as a PEG tube. LAB AND X-RAY: As mentioned above one blood culture is positive for coagulase-negative staph, this is a contaminant as mentioned above. Urine culture is negative. Chest x-ray shows a decrease in the patient's right basilar infiltrate. Creatinine is 0.9. GFR is greater than 60. [place] [address], hemoglobin 8.3 and platelet count 133,000. ASSESSMENT AND PLAN: The patient has a positive blood culture. It is a contaminant and treatment is not indicated. Patient does have pneumonia. I will plan to continue cefepime 1 more week. I discussed with Dr. Garcia and the patient and her daughter we all feel it would be best to have the patient go to a rehab facility for a week so that the patient will be able to take care of herself when she goes home. They prefer the [facility] in [place] because that is right there where they live and it would be much more convenient for the patient and her daughters to be there. COMORBIDITIES: Include she has stage IV small cell cancer, gastroesophageal reflux and diabetes mellitus. cc: Slim Galvez MD
--- NOTE | 2016-10-28 15:59 | PROGRESS NOTE ---
DATE: 10/28/2016 SUBJECTIVE: Patient has no focal complaints. She feels better today. OBJECTIVE: Vital signs: Blood pressure 159/48, heart rate of 86, respiratory rate of 19, temperature 99.3 degrees, 97% on 3 L. Cardiovascular: Regular rate and rhythm. Pulmonary: Diminished at the bases. GI: Soft, nontender, nondistended. Bowel sounds are positive. LABORATORY DATA: White count has jumped up to 40,000, hemoglobin and hematocrit are 8 and 26, platelets 133,000. CMP looked okay except sodium is up to 146. Her chest x-ray from yesterday just showed some cardiomegaly, pulmonary vascular congestion, pulmonary edema, trace effusions. It sounds more like volume overload. PROBLEM LIST: 1. Pneumonia or at least empirically I feel she has left lower lobe pneumonia. She is on cefepime, day 2 of that. 2. Leukocytosis. Again, I think this is a reaction to the Neulasta. She had it about a week ago. I think it is a very hefty reaction but I think that will be related to that. Dr. Shrestha is to come and evaluate the patient and comment on that. 3. Acute kidney injury. That is basically resolved. 4. Anemia. Appears to be stable. DISPOSITION: She is very weak. She may need rehab. However, her family is a little concerned about that because that may interfere with her chemotherapy. We will continue to follow. I am going to stop her fluids because she does have a little bit of hypernatremia and we will follow clinically. cc: Edison Garcia MD
[2016-10-28] MEDS ORDERED: NS 500 ML ONE (17:38)
[2016-10-29] MEDS: DUONEB (A & A) INH SCH ×4 (03:22→21:26)
[2016-10-29] MEDS: PRILOSEC PO SCH (06:12)
[2016-10-29] MEDS: MAXIPIME 2 GM/NS 2 GM/100 ML IVPB IV SCH ×2 (06:12→18:08)
[2016-10-29 06:50] LABS: HEMOGLOBIN 8.9 g/dL (12.0-16.0); MANUAL DIFF NEEDED? YES; MCH 30.3 PG (27-31); MCHC 31.8 g/dL (33-37); MCV 95.2 FL (81-99); MPV 9.9 FL (7.4-10.4); PLT 181 X1000 (130-400); RBC 2.94 XMIL (4.2-5.4)
[2016-10-29 06:59] LABS: AGAP 14; BUN 15 mg/dL (8-22); CALCIUM 8.7 mg/dL (8.8-10.2); CHLORIDE 109 mmol/L (98-107); COSMO 292; POTASSIUM 3.9 mmol/L (3.5-5.1); SODIUM 145 mmol/L (136-145); TCO2 22 mmol/L (25-35)
[2016-10-29 07:20] LABS: BANDS 18 % (0-1); LYMPHS 2 % (21-51); NRBC 2 % (0-0)
[2016-10-29] MEDS: LEXAPRO PO SCH (09:31)
--- NOTE | 2016-10-29 15:57 | PROGRESS NOTE ---
DATE: 10/29/2016 SUBJECTIVE: Patient has no focal complaints. OBJECTIVE: Vital Signs: Blood pressure 153/46, heart rate 76, respiratory rate 20, temperature 97.6 degrees. Cardiovascular: Regular rate and rhythm. Pulmonary: Bilateral breath sounds. Clear to auscultation. Gastrointestinal: Abdomen soft, nontender, nondistended. Bowel sounds are positive. LABORATORY DATA: White count is up to 44,000 most of that being segmented. She does have a fairly high bandemia of 18%. CMP is normal. PROBLEM LIST: 1. Pneumonia left lower lobe. She is on cefepime day 3. 2. Profound leukocytosis likely multifocal, likely related to Neulasta and infection. Dr. Shrestha is following. 3. Acute kidney injury. Normal renal function. 4. Anemia appears stable. DISPOSITION: Plan is to go home with home with home physical therapy. The patient is still in need of chemotherapy and will not be able to complete that with rehabilitation so we are going to work on home physical therapy. Hopefully discharge in the next couple of days. She was able to ambulate somewhat today. I am not sure if she needed oxygen. We will continue to follow closely. cc: Edison Garcia MD
--- NOTE | 2016-10-29 17:35 | PROGRESS NOTE ---
DATE: 10/29/2016 PRESENT ILLNESS: The patient has pneumonia. She also has leukocytosis which may be due to an injection she received of new Neulasta. She had 1 of 2 blood cultures positive for a coagulase- negative staph which is a contaminant. MEDICATIONS: The patient is on a combination of vancomycin and cefepime. This is day 3 of antibiotics. PHYSICAL EXAMINATION: Vital Signs: Temperature of 97.8 degrees, pulse 80, respirations 22, blood pressure 172/42. General: This is a somewhat ill-appearing, elderly female. She is in no acute distress. She actually has been up in a chair and even walked today. Lungs: Clear to auscultation. Cardiovascular: Regular heart rate. Abdomen: Soft and nontender. Patient also has a colostomy and a PEG tube in place. Extremities: She has edema, but there is no erythema. LABORATORY AND X-RAY: The CBC shows a white count which still remains high at 44,100, hemoglobin is 8.9 and platelet count is 181,000. Urine culture is sterile and as mentioned above 1 of 2 blood cultures is positive for a coagulase-negative Staph. The other blood culture is negative. ASSESSMENT AND PLAN: 1. Patient has pneumonia. The plan will be to continue her current antibiotics. 2. Comorbidities include stage IV small-cell lung cancer. Gastroesophageal reflux and diabetes mellitus. cc: Slim Galvez MD
[2016-10-30] MEDS: DUONEB (A & A) INH SCH ×4 (03:24→21:20)
[2016-10-30] MEDS: MAXIPIME 2 GM/NS 2 GM/100 ML IVPB IV SCH ×4 (05:52→18:29)
[2016-10-30] MEDS: PRILOSEC PO SCH ×2 (05:52→07:40)
[2016-10-30 06:53] LABS: HEMOGLOBIN 8.5 g/dL (12.0-16.0); MANUAL DIFF NEEDED? YES; MCHC 31.5 g/dL (33-37); MCV 95.4 FL (81-99); MPV 9.8 FL (7.4-10.4); PLT 213 X1000 (130-400); RBC 2.83 XMIL (4.2-5.4)
[2016-10-30 07:06] LABS: AGAP 13; BUN 17 mg/dL (8-22); CALCIUM 8.7 mg/dL (8.8-10.2); CHLORIDE 108 mmol/L (98-107); COSMO 291; POTASSIUM 3.9 mmol/L (3.5-5.1); SODIUM 144 mmol/L (136-145); TCO2 23 mmol/L (25-35)
[2016-10-30 07:13] LABS: BANDS 6 % (0-1); LYMPHS 6 % (21-51); MONO 4 % (1-9)
[2016-10-30] MEDS: LEXAPRO PO SCH (09:15)
[2016-10-30] MEDS: PATIENT'S OWN MED PO SCH (09:15)
[2016-10-30] MEDS ORDERED: PERCOCET-5 PO PRN (16:32)
--- NOTE | 2016-10-30 16:41 | PROGRESS NOTE ---
DATE: 10/30/2016 PRESENT ILLNESS: The patient has a pneumonia. Her leukocytosis which may be due to receiving Neulasta appears to be improving as well. MEDICATIONS: The patient is on day 4 of treatment with cefepime. PHYSICAL EXAMINATION: Vital Signs: Temperature is 98 degrees, pulse 68, respirations 16, blood pressure 159/49. General: In general the patient looks chronically ill, but she is getting better. She has been able to be up in a chair and walk in the [place]. She still does not have much in the way of an appetite. Vital Signs: Temperature is 98 degrees, pulse is 68, respiration is 16, blood pressure 159/49. Cardiovascular: Heart rate is regular. Lungs: Clear to auscultation. Abdomen: Soft and nontender. LAB AND X-RAY: The CBC today shows a white count which has decreased at 37,290, hemoglobin 8.5, and platelet count 213,000. Creatinine is 0.9. GFR is greater than 60. ASSESSMENT AND PLAN: Patient has pneumonia and a resolving leukocytosis. My plan will be to continue cefepime. I have ordered a chest x-ray for tomorrow. COMORBIDITIES: Include stage IV small-cell lung cancer, gastroesophageal reflux disease, and diabetes mellitus. cc: Slim Galvez MD
--- NOTE | 2016-10-30 16:45 | PROGRESS NOTE ---
DATE: 10/30/2016 SUBJECTIVE: Patient has no focal complaints. She seems to be doing better. OBJECTIVE: Vital signs: Blood pressure 159/49, heart rate 68, respiratory rate 16, temperature 98 degrees, 97% on 2 L. Cardiovascular: Regular rate and rhythm. Pulmonary: Bilateral breath sounds. Clear to auscultation. GI: Soft, nontender, nondistended. Bowel sounds are positive. LABORATORY DATA: White count is down to 37, hemoglobin and hematocrit 8 and 27. Platelets 213,000. Chemistries look good. PROBLEM LIST: 1. Pneumonia, left lower lobe. She is on Cefepime, day 4. Seems to be doing okay. I am not sure if we can talk about transitioning her to oral therapy. 2. Leukocytosis secondary to Neulasta injection and infection. Clinically she appears to be improving and white count has finally come down. Dr. Shrestha is following and feels that this is not necessarily an abnormal leukemoid response, but is a profound response related to multiple confounders, infection, likely some steroid exposure during the chemotherapy. 1. Acute kidney injury. This basically has resolved. 2. Anemia. Appears stable. DISPOSITION: Sounds like she probably could go home here soon. I think rehab would be an option. However, family and patient are reluctant to pursue because they do not want to delay chemotherapy any further, so we are going to work on trying to get her home. cc: Edison Garcia MD
[2016-10-30] MEDS: NEURONTIN PO SCH ×2 (16:57→21:54)
[2016-10-30] MEDS: MELATONIN PO SCH (21:54)
[2016-10-30] MEDS: REQUIP PO SCH (21:54)
[2016-10-31] MEDS: DUONEB (A & A) INH SCH ×4 (03:41→21:13)
[2016-10-31] MEDS: MAXIPIME 2 GM/NS 2 GM/100 ML IVPB IV SCH (06:06)
[2016-10-31] MEDS: PRILOSEC PO SCH ×2 (06:07→15:25)
[2016-10-31 06:34] LABS: HEMATOCRIT 26.8 % (37.0-47.0); HEMOGLOBIN 8.5 g/dL (12.0-16.0); MCH 30.9 PG (27-31); MCHC 31.7 g/dL (33-37); MCV 97.5 FL (81-99); MPV 9.1 FL (7.4-10.4); RBC 2.75 XMIL (4.2-5.4)
[2016-10-31 06:52] LABS: AGAP 12; BUN 16 mg/dL (8-22); CALCIUM 9.5 mg/dL (8.8-10.2); CHLORIDE 103 mmol/L (98-107); COSMO 281; POTASSIUM 3.8 mmol/L (3.5-5.1); SODIUM 139 mmol/L (136-145); TCO2 24 mmol/L (25-35)
--- NOTE | 2016-10-31 07:31 | Diag Imaging Result Doc PS360 ---
EXAM: CHEST-1 VIEW INDICATION: pneumonia TECHNIQUE: One view COMPARISON: 10/28/2016 FINDINGS: Right chest port is in stable position. Small pleural effusions appear increased. There is increased opacity at the lung bases indicating atelectasis and/or infiltrate. There is stable cardiomegaly. IMPRESSION: Increase in bilateral small effusions and bibasilar atelectasis and/or infiltrate. Electronically signed by Gilson Torres 10/31/2016 7:29 AM
--- NOTE | 2016-10-31 08:25 | PROGRESS NOTE ---
DATE: 10/31/2016 PRESENT ILLNESS: The patient had pneumonia. Her current pulmonary status may be due to fluid overload rather than infection. Her leukocytosis in part may be secondary to the last neulasta injection which she received earlier. MEDICATIONS: The patient is being treated with cefepime. This is day 5 of treatment with that antibiotic. PHYSICAL EXAMINATION: Vital Signs: Temperature is 98.1, pulse 70, respirations 20, blood pressure 149/46. General: This is an obese, elderly female. She is in no acute distress. Lungs: There were some bibasilar rales. Cardiovascular: Heart rate is regular. Abdomen: Soft and nontender. A colostomy and G tube are in place. LAB AND X-RAY: CBC today shows that the white count is down to 33,820, hemoglobin 8.5, and platelet count is 238,000. Creatinine 0.9. GFR is greater than 60. Chest x-ray shows increased bibasilar effusions and an increase in the bibasilar pneumonia versus atelectasis. There also is cardiomegaly. ASSESSMENT AND PLAN: I think the patient did have an element of pneumonia, but now she has pulmonary venous congestion. I am stopping her antibiotic. COMORBIDITIES: The patient's comorbidities include she is elderly. She is obese. Comorbidities include stage IV small-cell lung cancer, gastroesophageal reflux disease and diabetes mellitus. cc: Slim Galvez MD [facility]
[2016-10-31] MEDS: LASIX PO SCH (10:31)
[2016-10-31] MEDS: NEURONTIN PO SCH ×4 (10:31→23:15)
[2016-10-31] MEDS: ZEBETA PO SCH (10:31)
[2016-10-31] MEDS: LEXAPRO PO SCH (10:31)
[2016-10-31] MEDS: ARIXTRA SUBQ SCH (10:31)
[2016-10-31] MEDS: PATIENT'S OWN MED PO SCH (10:32)
--- NOTE | 2016-10-31 17:15 | PROGRESS NOTE ---
DATE: 10/31/2016 SUBJECTIVE: Patient has no focal complaints. OBJECTIVE: Vital Signs: Blood pressure 152/52, heart rate 61, respiratory 17, temperature 97.8. Cardiovascular: Regular rate and rhythm. Pulmonary: Bilateral breath sounds. Clear to auscultation. GI: Soft, nontender, nondistended. Bowel sounds are positive. LABORATORY DATA: Hemoglobin and hematocrit was 8 and 26, white count 33, platelets 238. BMP normal. PROBLEM LIST: 1. Pneumonia. We stopped antibiotics. I think she is on day 5. I think we probably will transition her to something oral at discharge. 2. Leukocytosis, seems to be improving. Likely related to Neulasta. Clinically, she seems to be doing better. 3. Acute kidney injury. This has resolved. 4. Anemia. Appears to be stable. 5. Volume overload. Chest x-ray today shows interstitial infiltrates. Bilateral pleural effusions. Laboratory data as described. DISPOSITION: If chest x-ray looks improved, she may go home tomorrow. cc: Edison Garcia MD
[2016-10-31] MEDS: LASIX IV SCH (17:31)
[2016-10-31] MEDS: REQUIP PO SCH (23:15)
[2016-10-31] MEDS: MELATONIN PO SCH (23:15)
[2016-11-01] MEDS: DUONEB (A & A) INH SCH ×2 (03:55→11:18)
[2016-11-01] MEDS: PRILOSEC PO SCH ×3 (05:47→08:06)
[2016-11-01] MEDS: LASIX IV SCH ×2 (05:47→16:01)
[2016-11-01 05:57] LABS: HEMATOCRIT 28.9 % (37.0-47.0); HEMOGLOBIN 9.1 g/dL (12.0-16.0); MCH 30.7 PG (27-31); MCHC 31.5 g/dL (33-37); MCV 97.6 FL (81-99); MPV 9.2 FL (7.4-10.4); RBC 2.96 XMIL (4.2-5.4)
[2016-11-01 06:02] LABS: CALCIUM 9.3 mg/dL (8.8-10.2); POTASSIUM 4.2 mmol/L (3.5-5.1)
--- NOTE | 2016-11-01 08:19 | Diag Imaging Result Doc PS360 ---
EXAM: CHEST-PORTABLE - 11/01/2016 HISTORY: dyspnea TECHNIQUE: Portable chest 0610 COMPARISON: 10/31/2016 FINDINGS: Heart size is within normal limits. There are bibasilar opacities which appear stable on the right and mildly increased on the left. There is stable mild prominence of vascular markings. There is no pneumothorax seen. Central venous catheter remains in place. IMPRESSION: Bibasilar opacities, stable on the right and mildly increased on the left. Stable mild vascular congestion. These findings suggest pulmonary edema plus or minus superimposed basilar pneumonia. Electronically signed by Shashi Peck 11/01/2016 8:17 AM
[2016-11-01] MEDS: LASIX PO SCH (09:49)
[2016-11-01] MEDS: NEURONTIN PO SCH ×3 (09:49→17:09)
[2016-11-01] MEDS: ARIXTRA SUBQ SCH (09:50)
[2016-11-01] MEDS: LEXAPRO PO SCH (09:50)
[2016-11-01] MEDS: ZEBETA PO SCH (09:50)
[2016-11-01] MEDS: PATIENT'S OWN MED PO SCH (11:10)
[2016-11-01 12:07] VITALS: BP 145/44
--- NOTE | 2016-11-01 17:14 | DISCHARGE SUMMARY ---
ADMISSION DATE: 10/25/2016 DISCHARGE DATE: DISCHARGE DIAGNOSES: 1. Presumed pneumonia left lower lobe. 2. Volume overload with pleural effusions. 3. Acute kidney injury. 4. Anemia. 5. Small-cell lung cancer stage IV. CONSULTATIONS: Dr. Shrestha and Dr. Galvez of Infectious Diseases. PROCEDURES: None. 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 Came in with a temperature 101.4 degrees. She came to the ER for evaluation and temp went up to 103. She had a focal infiltrate in the right upper lobe and she was treated for pneumonia and placed on antibiotics. She did have some acute kidney injury with a creatinine of 1.2 when she came in. A little bit of elevated ammonia level as well. Clinically, she slowly improved. Creatinine did bump up, went up to 1.5. Improved with hydration. She was on a bicarbonate drip initially because of acidosis. I think her creatinine eventually stabilized. ID was consulted I think from a pneumonia standpoint. She also had some altered mentation. He recommended cefepime and vancomycin. Her blood cultures 1 grew out coag- negative Staph which was felt to be a contaminant and she very slowly clinically improved. She was very weak so initially plans were made for possible rehab but because of her concurrent chemotherapy and the fact that she would not be able to continue while she was in rehab, plan was to go home with physical therapy. She slowly clinically improved. By the she had defervesced. She also developed a profound leukocytosis while she was in the hospital. That was another issue for Infectious Diseases. She came in with a low white count too. By the went to 32, peaked at 44,000 and then went down the 35,000. She had reportedly gotten Neupogen I think on the . Her leukocytosis was felt to be partly at least reactive to the Neulasta, part infection. On the plans were made for discharge but her chest x-ray looked a little bit worse. I felt that it was most likely consistent with more volume overload than anything else. We diuresed her. Repeat chest x-ray on the looked better in the right lower lobe. She was advised to continue to take some Lasix at home to aid in diuresis. DISCHARGE CONDITION: Is stable. Creatinine was 1.1 at discharge. DISCHARGE MEDS: Bisoprolol 10 daily. Omnicef 300 b.i.d. for another 5 days. Lexapro 10 daily. Lasix 40 daily for 3 days, and then she was to resume her previous dose which was 20 mg daily but I do not think she takes that on a regular basis. Neurontin 100 q.i.d. Gemfibrozil 600 b.i.d. Lamictal 200 daily. Imodium 2 b.i.d. Cozaar 50 daily. Melatonin. Prilosec 40 daily. Zofran p.r.n. Percocet p.r.n., doses Percocet 5. Perphenazine 2 at bedtime. Pravachol 40 daily. Requip 0.5 at bedtime. Trazodone 50 at bedtime. DISCHARGE CONDITION: Stable. She will need follow up CBC in 1 week to decide when she can resume chemotherapy. That will be at the discretion of Dr. Shrestha. She was to return for worsening shortness of breath, cough or fevers. 35 minute discharge. cc: MD Petey Schmitt MD Dr. Gillespie, [place]
== END 2016-11-01 17:04 | disposition home or self-care (01) ==
LOC: ED 15:35 → SUATTDRO 19:09 → 3N 19:09
PROVIDERS: ATTEND Internal Medicine